=== PATIENT | male | born 1965 | race African-American/Black ===

== ENCOUNTER 2017-09-30 12:41 | Emergency (ER) | payer MEDICAID, SELFPAY ==
[2017-09-30 12:56] VITALS: BP 121/79; PULSE 102; RESP 20; TEMP 36.6; O2SAT 97; BMI 27.1
--- NOTE | 2017-09-30 13:03 | HMH.EDUTC ---
[facility] [place] Clinical Impression: URI (upper respiratory infection) Qualifiers: URI type: unspecified URI Qualified Code(s): J06.9 - Acute upper respiratory infection, unspecified Disposition: Home, Self-Care Condition on Discharge: Good Instructions: Sore Throat, DI for Cough -- Adult Additional Instructions: * Monitor Temp. Tylenol and/or Ibuprofen as needed. ER if fever is no less than 101 despite alternating Tylenol and Ibuprofen * Encourage fluids, water, Gatorade, powerade, pedialyte if /toddler/or child * Warm salt water gargles for throat irritation *Warm fluids *Sore throat lozenges *Sleep elevated *humidifier or vaporizer Lots of rest Increase fluids, water, Gatorade, powerade *Your throat swab was sent to lab for culture. Those results area typically sent to your primary care physician. Be sure to follow up in 2-3 days if no improvement so they can review those results and treat if necessary If you dont have primary care I recommend you get one, but in the mean time you will have to return to a walk in clinic Follow up IMMEDIATELY for new or worsening of symptoms OR no noticeable improvement over the next 48-72 hours. 911 immediately for any life threatening symptoms such as chest pain or difficulty breathing Prescriptions: Azithromycin [Z-Avinash 250mg Tab] 250 mg PO UD DOSE PK #6 tab Dextromethorphan Polistirex [Delsym] 10 ml PO Q12H PRN #300 adelita.er.12h PRN Reason: Cough Referrals: Provider,Referral, [Primary Care Provider] - Forms: Work/School Release Time of Disposition: 13:20 Medical Decision Making - Medical Records Medical records reviewed: Yes: I reviewed the patient's medical records. Vital Signs: 09/30/17 12:56 Temperature 98 F Temperature Source Temporal Artery Scan Pulse Rate [Brachial] 102 H Respiratory Rate 20 Blood Pressure [Right Arm] 121/79 Blood Pressure Mean [Right Arm] 93 Blood Pressure Source [Right Arm] Automatic Cuff Blood Pressure Position [Right Arm] Sitting 02 Sat by Pulse Oximetry 97 Oxygen Delivery Method Room Air - Lab Data Lab results reviewed: Yes: I reviewed the patient's lab results. Orders (Tests/Meds): ED MEDICATIONS Discontinued Medications Generic Name Dose Route Start Last Admin Trade Name Freq PRN Reason Stop Dose Admin Methylprednisolone Sodium Succinate 125 mg 09/30/17 13:10 Solu-Medrol 125mg/2ml Vial IM 09/30/17 13:11 ONCE ONE - Devon Inquiry Pt receiving controlled substance: No Devon was queried for this patient: No [facility] [place] HPI - General Stated complaint: sore throat, lost voice Mode of Arrival: Ambulatory Source of Information: Patient Limitations: No Limitations Description of Symptoms (Recalled from Triage Doc. by RN): SORE THROAT SINCE YESTERDAY HEENT Symptoms (Recalled from RN notes): Yes Resp Symptoms (Recalled from RN notes): No Skin Symptoms (Recalled from RN notes): No MS Symptoms (Recalled from RN notes): No Functional Status (Recalled from RN notes): NA - History of Present Illness Provider Complaint: Patient state that he hasnt been feeling well for several days State that he noticed that he had a nagging cough, then throat began to get sore and having nasal congestion State that today he woke up and was hoarse State that he has a burning like feeling in his throat when he coughs State that as the day went on he continued to feel worse State that he is not sure if he has had a fever or not - Related Data Previous Rx's Medication Instructions Recorded Azithromycin [Z-Avinash 250mg Tab] 250 mg PO UD DOSE PK #6 tab 09/30/17 Dextromethorphan Polistirex 10 ml PO Q12H PRN #300 adelita.er.12h 09/30/17 [Delsym] Allergies Allergy/AdvReac Type Severity Reaction Status Date / Time codeine [CODEINE] Allergy Mild Unverified 07/16/17 14:33 - Worker's Comp Is this a Worker's Comp case?: No [facility] History I have reviewed the patient's past medical history: Yes - Social History Alcoh
--- NOTE | 2017-09-30 13:10 | ED_ITS ---
[facility] [place] Clinical Impression: URI (upper respiratory infection) Qualifiers: URI type: unspecified URI Qualified Code(s): J06.9 - Acute upper respiratory infection, unspecified Disposition: Home, Self-Care Condition on Discharge: Good Instructions: Sore Throat, DI for Cough -- Adult Additional Instructions: * Monitor Temp. Tylenol and/or Ibuprofen as needed. ER if fever is no less than 101 despite alternating Tylenol and Ibuprofen * Encourage fluids, water, Gatorade, powerade, pedialyte if /toddler/or child * Warm salt water gargles for throat irritation *Warm fluids *Sore throat lozenges *Sleep elevated *humidifier or vaporizer Lots of rest Increase fluids, water, Gatorade, powerade *Your throat swab was sent to lab for culture. Those results area typically sent to your primary care physician. Be sure to follow up in 2-3 days if no improvement so they can review those results and treat if necessary If you don? t have primary care I recommend you get one, but in the mean time you will have to return to a walk in clinic Follow up IMMEDIATELY for new or worsening of symptoms OR no noticeable improvement over the next 48-72 hours. 911 immediately for any life threatening symptoms such as chest pain or difficulty breathing Prescriptions: Azithromycin [Z-Avinash 250mg Tab] 250 mg PO UD DOSE PK #6 tab Dextromethorphan Polistirex [Delsym] 10 ml PO Q12H PRN #300 adelita.er.12h PRN Reason: Cough Referrals: Provider,Referral, [Primary Care Provider] - Forms: Work/School Release Time of Disposition: 13:20 Medical Decision Making - Medical Records Medical records reviewed: Yes: I reviewed the patient's medical records. Vital Signs: 09/30/17 12:56 Temperature 98 F Temperature Source Temporal Artery Scan Pulse Rate [Brachial] 102 H Respiratory Rate 20 Blood Pressure [Right Arm] 121/79 Blood Pressure Mean [Right Arm] 93 Blood Pressure Source [Right Arm] Automatic Cuff Blood Pressure Position [Right Arm] Sitting 02 Sat by Pulse Oximetry 97 Oxygen Delivery Method Room Air - Lab Data Lab results reviewed: Yes: I reviewed the patient's lab results. Orders (Tests/Meds): ED MEDICATIONS Discontinued Medications Generic Name Dose Route Start Last Admin Trade Name Freq PRN Reason Stop Dose Admin Methylprednisolone Sodium Succinate 125 mg 09/30/17 13:10 Solu-Medrol 125mg/2ml Vial IM 09/30/17 13:11 ONCE ONE - Devon Inquiry Pt receiving controlled substance: No Devon was queried for this patient: No [facility] [place] - General Stated complaint: sore throat, lost voice Mode of Arrival: Ambulatory Source of Information: Patient Limitations: No Limitations Description of Symptoms (Recalled from Triage Doc. by RN): SORE THROAT SINCE YESTERDAY HEENT Symptoms (Recalled from RN notes): Yes Resp Symptoms (Recalled from RN notes): No Skin Symptoms (Recalled from RN notes): No MS Symptoms (Recalled from RN notes): No Functional Status (Recalled from RN notes): NA - History of Present Illness Provider Complaint: Patient state that he hasnt been feeling well for several days State that he noticed that he had a nagging cough, then throat began to get sore and having nasal congestion State that today he woke up and was hoarse State that he has a burning like feeling in his throat when he coughs State that as the day went on he continued to feel worse State
[2017-09-30 13:16] LABS: UTC Influenza A Antigen Negative (Negative); UTC Influenza B Antigen Negative (Negative); UTC Strep Screen (Rapid) Negative (Negative)
[2017-09-30 13:25] VITALS: BP 121/79; PULSE 102; RESP 20; TEMP 36.6
== END 2017-09-30 13:31 | disposition home or self-care (01) ==
PROVIDERS: Emergency Provider Nurse Practitioner; Family Provider Family Medicine
DX: J06.9 Acute upper respiratory infection, unspecified (principal); Z88.6 Allergy status to analgesic agent
CPT/HCPCS: 87804; 87880; 96372; 99203

== ENCOUNTER → 2017-10-23 13:38 | Outpatient (CLI) | payer MEDICAID, SELFPAY ==
--- NOTE | 2017-10-23 13:43 | XR_ITS ---
XR chest 2V HISTORY: ITS.REASON: SHORTNESS OF BREATH ORDERING PHYSICIAN: Jayde Park PATIENT AGE: 52 years COMPARISON: 10/18/2016 FINDINGS: The cardiomediastinal silhouette and pulmonary vascularity are within normal limits. The lungs are clear without infiltrates, suspicious nodules, or pleural effusions. No acute bony abnormalities. IMPRESSION: Negative chest, no acute finding
== END ==
PROVIDERS: PCP Nurse Practitioner; Visit Provider Nurse Practitioner
DX: R06.02 Shortness of breath (principal)
CPT/HCPCS: 71046

== ENCOUNTER → 2017-11-13 09:52 | Outpatient (CLI) | payer MEDICAID, SELFPAY ==
[2017-11-13 10:55] VITALS: PULSE 80; PULSE 84
== END ==
PROVIDERS: Family Provider Family Medicine; PCP Family Medicine; Visit Provider Nurse Practitioner
DX: R06.02 Shortness of breath (principal)
CPT/HCPCS: 94060; 94640

== ENCOUNTER → 2017-12-27 14:51 | Outpatient (CLI) | payer MEDICAID, SELFPAY | PROVIDERS: PCP Family Medicine; Visit Provider Internal Medicine Cardiovascular Disease | DX: G47.33 Obstructive sleep apnea (adult) (pediatric) (principal); I10 Essential (primary) hypertension; R40.0 Somnolence | CPT/HCPCS: 95806 ==

== ENCOUNTER 2018-05-21 14:24 | Outpatient (RCR) | payer MEDICAID, SELFPAY | END 2018-05-21 14:25 | disposition home or self-care (01) | LOC: PT 14:24 | PROVIDERS: Visit Provider Family Medicine | DX: M25.512 Pain in left shoulder (principal) ==

== ENCOUNTER → 2018-06-16 13:07 | Outpatient (POV) | payer MEDICAID, SELFPAY | PROVIDERS: Visit Provider Specialist | DX: M79.89 Other specified soft tissue disorders (principal); R20.2 Paresthesia of skin | CPT/HCPCS: 95886; 95909 ==

== ENCOUNTER → 2018-08-04 14:12 | Outpatient (CLI) | payer MEDICAID, SELFPAY ==
--- NOTE | 2018-08-04 14:15 | XR_ITS ---
XR wrist LT min 3V HISTORY pain and numbness ITS.REASON: B/L Carpal tunnel ORDERING PHYSICIAN: Martine Prabhakar MD PATIENT AGE: 53 years Comparison: None FINDINGS: No fracture or dislocation. No lytic or blastic change. There is normal mineralization.. The joint spaces are well-preserved. No significant degenerative/arthritic changes. No erosive changes evident.. IMPRESSION: Negative wrist
--- NOTE | 2018-08-04 14:15 | XR_ITS ---
XR wrist RT min 3V HISTORY pain and numbness ITS.REASON: Carpal tunnel ORDERING PHYSICIAN: Martine Prabhakar MD PATIENT AGE: 53 years Comparison: None FINDINGS: No fracture or dislocation. No lytic or blastic change. There is normal mineralization.. The joint spaces are well-preserved. No significant degenerative/arthritic changes. No erosive changes evident.. There is a small accessory center of ossification at the ulnar styloid IMPRESSION: Negative wrist
[2018-08-04 16:49] LABS: Basophils # 0.1 K/mm3 (0-0.2); Basophils % 0.8 % (0.1-2.0); Eosinophils # 0.1 K/mm3 (0.0-0.4); Eosinophils % 1.4 % (0.1-12.0); Hematocrit 39.8 % (42.0-52.0); Hemoglobin 13.1 g/dL (14.1-18.0); Lymphocytes # 1.4 K/mm3 (0.7-4.5); Lymphocytes % 23.8 % (10-50); Mean Corpuscular HGB Conc 32.9 g/dL (31.8-35.4); Mean Corpuscular Hemoglobin 28.8 pg (27.0-31.2); Mean Corpuscular Volume 87.6 fl (80-94); Mean Platelet Volume 7.1 fl (7.4-10.4); Monocytes # 0.6 K/mm3 (0.1-1.0); Monocytes % 9.8 % (1.7-9.3); Neutrophils # 3.9 K/mm3 (1.8-7.8); Neutrophils % 64.2 % (37.0-80.0); Platelet Count 295 K/mm3 (142-424); Red Blood Count 4.55 M/mm3 (4.60-6.20); Red Cell Distribution Width 13.4 % (11.5-17.5)
[2018-08-04 16:58] LABS: INR 1.02 (0.9-1.1); Prothrombin Time 10.5 seconds (9.4-11.8)
[2018-08-04 18:44] LABS: Anion Gap 14.6 mEq/L (5-15); Blood Urea Nitrogen 14 mg/dL (7-18); Calcium 8.5 mg/dL (8.5-10.1); Carbon Dioxide 26 mmol/L (21.0-32.0); Chloride 106 mmol/L (98-107); Creatinine,Serum 1.07 mg/dL (0.70-1.30); Estimated Glomerular Filt Rate 72 ml/min (>60); GFR (African American) 87 ML/MIN (>60); Glucose 80 mg/dL (74-106); Potassium 3.6 mmoL/L (3.5-5.1); Sodium 143 mmol/L (136-145)
== END ==
PROVIDERS: PCP Family Medicine; Visit Provider Orthopaedic Surgery
DX: Z01.818 Encounter for other preprocedural examination (principal); G56.00 Carpal tunnel syndrome, unspecified upper limb; G47.33 Obstructive sleep apnea (adult) (pediatric)
CPT/HCPCS: 36415; 73110; 80048; 85025; 85610

== ENCOUNTER → 2020-01-12 11:02 | Outpatient (CLI) | payer OTHER, SELFPAY ==
--- NOTE | 2020-01-12 11:11 | XR_ITS ---
PROCEDURE: XR CHEST 2V CLINICAL HISTORY: DYSPNEA ON EXERTION, nonsmoker COMPARISON: CXR CHEST(2 VIEWS-NOT PORTABLE) from 05/03/2014 CXR CHEST(2 VIEWS-NOT PORTABLE) from 10/18/2016 CXR2V XR chest 2V from 10/23/2017 FINDINGS: The cardiomediastinal silhouette and pulmonary vascularity are within normal limits. The lungs are clear without infiltrates, suspicious nodules, or pleural effusions. No acute bony abnormalities. IMPRESSION: No acute findings. Dictated by: Dr. Wesley Aguayo MD 01/12/2020 11:[address] Wesley Aguayo MD in [place] 01/12/2020 11:27
== END ==
PROVIDERS: PCP Family Medicine; Visit Provider Family Medicine
DX: R06.00 Dyspnea, unspecified (principal)
CPT/HCPCS: 71046

== ENCOUNTER → 2020-01-21 08:04 | Outpatient (CLI) | payer OTHER, SELFPAY ==
--- NOTE | 2020-01-21 | CA_ITS ---
APPROVED REPORT Exam: Exercise Treadmill Technologist: Christal Randall, Ht: 5 ft 6 in Wt: 162 lbs BSA: 1.83 m2 HR: 82 bpm BP: 125/82 mmHg Rhythm: NSR,ST-T ABNORMALITIES INFERIORLY Medical History Medical History: HTN, Hyperlipidemia Medications: Omeprazole,,,,, Lovastatin,,,,, Gabapentin,,,,, Losartan,,,,, Lasix,,,,, Naproxen,,,,, MeLOXICAM,,,,, KCL,,,,, Baclofen,,,,, Allergies: CODIENE Cardiac Risk Factors: HTN, Hyperlipidemia Stress Test Details Test: Emerson HR Resting HR: 93 bpm Max Heart Rate (APMHR): 164 bpm Max HR Achieved: 140 bpm Target HR (85% APMHR): 139 bpm % of APMHR: 85 Recovery HR: 117 bpm BP Resting BP: 125.0/82.0 mmHg Max BP: 146.0/85.0 mmHg Recovery BP: 134.0/88.0 mmHg ECG Resting ECG: NSR.ST-T ABNORMALITIES INFERIORLY Clinical Exercise duration: 09:01 min Highest Stage Achieved: Exercise capacity: 10.1 METs Stress ECG Conclusion EXERCISED 9:00 ON EMERSON PROTOCOL WITH MAX HEART RATE 140 BPM WHICH IS 85% OF PM FOR AGE. MAX BP 146/85. METS = 10.1. TEST STOPPED DUE TO SOA AND LEG FATIGUE. NO CHEST PAIN. NO ARRHYTHMIAS/ECTOPY. NO SIGNIFICANT CHANGES IN INFERIOR LEAD ABNORMALITIES WITH EXERCISE. WITHIN NORMAL ST RESPONSE TO EXERCISE IN ALL OTHER LEADS. NORMAL GXT WITH DECREASED SENSITIVITY DUE TO BASELINE ABNORMALITIES INFERIORLY. GXT ONLY (NO IMAGING) Test Summary REST . . . . . . . Standing REST . . . . . . . Sitting REST . . . . . . . Sitting REST 03:10 0.0 0.0 93 . 125/ 82 . . Stage 1 01:00 10.0 1.7 107 . . . . Stage 1 02:00 10.0 1.7 116 . . . . Stage 1 03:00 10.0 1.7 116 . 138/ 84 . . Stage 2 01:00 12.0 2.5 121 . . . . Stage 2 02:00 12.0 2.5 127 . . . . Stage 2 03:00 12.0 2.5 123 . 146/ 85 . . Stage 3 01:00 14.0 3.4 134 . . . . Stage 3 02:00 14.0 3.4 135 . . . . Stage 3 . . . . . . . Stage held Stage 3 03:00 14.0 3.4 140 . . . . Stage 3 . . . . . . . Stage resumed Stage 3 03:01 14.0 3.4 140 . . . Stop exercise at 09:01 RECOVERY 01:00 0.0 0.0 117 . 134/ 88 . . RECOVERY 02:00 0.0 0.0 104 . 134/ 88 . . RECOVERY 03:00 0.0 0.0 91 . 135/ 96 . . RECOVERY 04:00 0.0 0.0 91 . 135/ 96 . . RECOVERY 05:00 0.0 0.0 95 . 136/ 91 . . RECOVERY 05:18 0.0 0.0 100 . 136/ 91 . . Electronically signed by : Juan Miguel Grey, 01/25/2020 12:06:20
== END ==
PROVIDERS: PCP Family Medicine; Visit Provider Family Medicine
DX: R06.09 Other forms of dyspnea (principal)
CPT/HCPCS: 93017

== ENCOUNTER → 2020-04-27 10:38 | Outpatient (CLI) | payer OTHER, SELFPAY | PROVIDERS: PCP Family Medicine; Visit Provider Specialist | DX: G47.33 Obstructive sleep apnea (adult) (pediatric) (principal) | CPT/HCPCS: 95806 ==